=== PATIENT | male | born 1985 | race Native Hawaiian/Other Pacific Islander ===

== ENCOUNTER 2025-06-12 16:02 | Emergency (ER) | payer OTHER ==
[2025-06-12 16:06] VITALS: BP 137/91; PULSE 91; RESP 18; TEMP 98.4; BMI 36.6
[2025-06-12] MEDS ORDERED: RABIES VACCINE (PCEC)/PF 2.5 UNIT/VIAL IM ONE (16:32)
[2025-06-12] MEDS: RABIES VACCINE (PCEC)/PF 2.5 UNIT/VIAL IM ONE (16:40)
== END 2025-06-12 16:48 | disposition home or self-care (01) ==
LOC: JERFT 16:02
PROC: 3E0234Z Introduction of Serum, Toxoid and Vaccine into Muscle, Percutaneous Approach (ICD-10-PCS; principal; 2025-06-12)
DX: Z23 Encounter for immunization (principal)
CPT/HCPCS: 90675; 99281-25